=== PATIENT | male | born 1965 | race Caucasian/White ===

== ENCOUNTER 2019-09-15 01:46 | Day surgery (SDC) | payer OTHER, SELFPAY ==
[2019-09-02 15:01] VITALS: BMI 39.9
--- NOTE | 2019-09-15 10:55 | WPDANESEPPF ---
Anes - Initial Pre Proc Eval Procedure: Operation Date: 09/15/19 12:30 Proposed Procedures p Colonoscopy - Trevor Garcia DO Date/Time: 09/15/19 10:55 Surgeon: Trevor Garcia DO Pre Op Diagnosis: Other Fecal Abnormalities Patient Data Age: 54 Gender: M Height: 5 ft 11 in Weight: 130 kg Allergies Allergy/AdvReac Type Severity Reaction Status Date / Time No Known Allergies Allergy Verified 09/02/19 15:08 Home Medications Medication Instructions Recorded Confirmed Type insulin glargine [Basaglar KwikPen 100 unit SUBCUT BID 09/02/19 09/02/19 History U-100 Insulin] insulin lispro [Humalog KwikPen 80 unit SUBCUT TID 09/02/19 09/02/19 History Insulin] losartan 25 mg PO DAILY 09/02/19 09/02/19 History omeprazole 20 mg PO DAILY 09/02/19 09/02/19 History pravastatin 10 mg PO DAILY 09/02/19 09/02/19 History Patient hx anesthesia problems: none Family hx anesthesia problems: none [facility] Past Medical History Medical History Diabetes GERD (gastroesophageal reflux disease) Hyperlipidemia Hypertension Morbid obesity VALENTE (obstructive sleep apnea) Anes - Eval Final PreProcedure Day of Procedure 09/15/19 10:55 Patient weight: morbidly obese Heart: regular rate and rhythm Lungs: clear to auscultation Airway: Mallampati scale class II Neurological: alert and oriented Last oral intake: >/= 8 hours ASA classification: III Emergent: no Anesthetic plan: proceed Anesthesia type and monitoring: general GIVS and standard monitoring Informed Consent: The patient's anesthetic plan and its attendant risks and benefits were discussed with the patient/family/POA. Questions were solicited and answers provided to the satisfaction of the patient/family/POA.
[2019-09-15 10:59] LABS: Glucose Point of Care 213 (65-105)
[2019-09-15] MEDS: LACTATED RINGERS 1,000 ML 150 ML IV CONT (11:02)
[2019-09-15 11:06] VITALS: BP 152/87; PULSE 100; RESP 16; TEMP 36.5; O2SAT 98; BMI 39.0
--- NOTE | 2019-09-15 11:17 | PM.IMHP ---
H&P: HPI History of Present Illness Chief complaint: Other Fecal Abnormalities Narrative: Reason for visit colonoscopy. This very pleasant gentleman seen in consultation requested . Impression: Screening colonoscopy. The patient has a family history colorectal cancer. GERD well controlled on medication. Hyperlipidemia. Hypertension. Obstructive sleep apnea. Obesity. Diabetes mellitus. Recommendation: Colonoscopy. History: This very pleasant gentleman is negative GI review systems. He is here for screening colonoscopy. The patient has a family history colorectal cancer. The patient's mother had colorectal cancer. He has a history of reflux disease well controlled on medication. Heart rate rhythm regular. Lungs CTA. Abdomen is soft. Neuro nonfocal. HEENT is unremarkable. Musculature system was unremarkable. [facility] Past Medical History Medical History Diabetes GERD (gastroesophageal reflux disease) Hyperlipidemia Hypertension Morbid obesity VALENTE (obstructive sleep apnea) Meds Home Medications and Allergies Home Medications Medication Instructions Recorded Confirmed Type insulin glargine [Basaglar KwikPen 100 unit SUBCUT BID 09/02/19 09/15/19 History U-100 Insulin] insulin lispro [Humalog KwikPen 80 unit SUBCUT TID 09/02/19 09/15/19 History Insulin] losartan 25 mg PO DAILY 09/02/19 09/15/19 History omeprazole 20 mg PO DAILY 09/02/19 09/02/19 History pravastatin 10 mg PO DAILY 09/02/19 09/15/19 History Allergies Allergy/AdvReac Type Severity Reaction Status Date / Time No Known Allergies Allergy Verified 09/15/19 11:00 Vital Signs Vital Signs - 24 hr 09/15/19 11:06 Temperature 36.5 C Pulse Rate 100 Respiratory Rate 16 Blood Pressure 152/87 H Pulse Oximetry 98
[2019-09-15 12:01] VITALS: BP 140/89; PULSE 98; RESP 20; O2SAT 96
[2019-09-15 12:11] VITALS: BP 140/93; PULSE 94; RESP 20; O2SAT 96
[2019-09-15 12:21] VITALS: BP 147/93; PULSE 88; RESP 20; O2SAT 96
== END 2019-09-15 12:32 | disposition home or self-care (01) ==
PROVIDERS: Visit Provider Internal Medicine Gastroenterology
PROC: 0DJD8ZZ Inspection of Lower Intestinal Tract, Via Natural or Artificial Opening Endoscopic (ICD-10-PCS; CPT 45378; principal; 2019-09-15 12:30)
DX: Z12.11 Encounter for screening for malignant neoplasm of colon (principal); D12.0 Benign neoplasm of cecum; D12.4 Benign neoplasm of descending colon; K63.5 Polyp of colon; K62.1 Rectal polyp; K64.8 Other hemorrhoids; I10 Essential (primary) hypertension; E78.5 Hyperlipidemia, unspecified; E11.9 Type 2 diabetes mellitus without complications; K21.9 Gastro-esophageal reflux disease without esophagitis; G47.33 Obstructive sleep apnea (adult) (pediatric); E66.01 Morbid (severe) obesity due to excess calories; Z68.39 Body mass index [BMI] 39.0-39.9, adult; Z79.4 Long term (current) use of insulin
CPT/HCPCS: 45385; 45380; 88305; J2704; J7120

== ENCOUNTER 2019-12-22 17:19 | Outpatient (CLI) | payer OTHER, SELFPAY ==
--- NOTE | ~2019-12-22 | XR_ITS ---
EXAMINATION: XR chest 2V EXAM DATE: 12/22/2019 17:41 INDICATION: Chronic cough. Hypertension. TECHNIQUE: Frontal and lateral projections of the chest obtained and reviewed. Comparison is made to prior examination from 09/27/2011. FINDINGS: The lungs are clear. There are no pleural effusions. The cardiomediastinal silhouette is within normal limits. There is no pneumothorax suspected. Patient has diffuse idiopathic skeletal h yperostosis (DISH). IMPRESSION: Unremarkable chest x-ray exam. Reviewed, dictated and finalized at location A.
== END 2019-12-22 17:20 | disposition home or self-care (01) ==
LOC: ANHIMG 17:24
PROVIDERS: Visit Provider Internal Medicine
DX: R05 Cough (principal)
CPT/HCPCS: 71046

== ENCOUNTER 2020-01-14 12:34 | Outpatient (CLI) | payer OTHER, SELFPAY ==
--- NOTE | 2020-01-17 12:39 | P.PCNPFT_ITS ---
PFT Interpretation PFT Interpretation: DOS: 01/14/2020 REQUESTING: Dr. Chapin REASON FOR TESTING: cough PULMONARY FUNCTION TESTS Results are not reproducible. All tests were performed to the best of the patient's ability with significant coaching. He was not able to exhale 3 times for 6 seconds. Spirometry: FEV1 80% normal. FVC 70% mildly decreased. FEV 1% is normal. No bronchodilator was given. Lung volumes: TLC 86% normal. Slow vital capacity is 70% consistent with FVC. RV is 110%, normal. RV/TLC is increased 42% consistent with mild air trapping. Airway resistance mildly increased 145%. Diffusion: DLCO mildly decreased 67%. Flow volume loop: This was not reliably reproducible. Expiratory and i nspiratory limbs are both irregular however only 2 loops were obtained. IMPRESSION: Non-reproducible results showing mild ventilatory impairment, mild air trapping, and mild diffusion impairment. Abnormal flow volume loop may or may not have clinical significance. Interpretation is limited by inability to obtain 3 acceptable efforts. Mady Cunha MD
--- NOTE | 2020-06-12 12:02 | WPDSIXMINUTE ---
Six Minute Walk Six Minute Walk: The patients O2 sats started at 93% and dropped as low as 91% Total walk distance 457.20 meters conclusion: This patient does qualify for home oxygen therapy.
== END 2020-01-14 12:35 | disposition home or self-care (01) ==
PROVIDERS: Visit Provider Internal Medicine
DX: R05 Cough (principal); R94.2 Abnormal results of pulmonary function studies
CPT/HCPCS: 94375; 94726; 94729

== ENCOUNTER 2020-05-23 14:44 | Outpatient (CLI) | payer OTHER, SELFPAY ==
--- NOTE | ~2020-05-23 | XR_ITS ---
MODIFIED ESOPHAGRAM HISTORY: Dysphagia. TECHNIQUE: Modified barium esophagram was performed on 05/23/2020. I administered fluoroscopy and perf ormed the exam with speech pathologist. Patient was seated for lateral fluoroscopic imaging for tiesha stion of thin liquids, pudding, solids and quantified amounts, followed by thin liquids in uncontroll ed amounts. This was recorded on tape. A single fluoroscopic spot image was also recorded. The DAP fo r this procedure was 2.909 Gycm2. The amount of fluoroscopy time used during this procedure was 1.3 m inutes. FINDINGS: Oral stage: Adequate function. Pharyngeal stage: Adequate function. Cervical/esophageal stage: Adequate function. IMPRESSION: Patient tolerated regular consistency oral feedings in the upright position. Please kymberly elate with speech pathologist findings and specific feeding recommendations. Reviewed, dictated and finalized at location A. IMPRESSION: Patient tolerated regular consistency oral feedings in the upright position. Please correlate with speech pathologist findings and specific feedi ng recommendations.
--- NOTE | 2020-05-23 15:57 | STOPEVAL ---
MODIFIED BARIUM SWALLOW: Thank you for referring Feliz Perera to [facility].? Attending Provider: Mady Cunha MD FAX: [phone] *ST Outpatient Evaluation (mbs) Start: 05/23/20 15:47 Freq: Status: Active Protocol: Document 05/23/20 15:15 BECHERERT (Rec: 05/23/20 15:57 BECHERERT [email or web address]) Therapy Assessment Status Assessment Status Assessment Status Evaluation Outpatient Past Medical History Past Medical History Source of Past Medical History Patient Neurological History Hx Neurological Disorders No Significant History Respiratory History Hx Sleep Apnea Yes: no CPAP Gastrointestinal History Hx Gastroesophageal Reflux Disease Yes Genitourinary History Hx Genitourinary Disorders No Significant History Musculoskeletal History Hx Musculoskeletal Disorders No Significant History Hematological History Hx Hematological Disorders No Significant History Endocrine History Hx Diabetes Yes HEENT History Hx HEENT Disorders No Significant History Integumentary History Hx Skin Disorders No Significant History Reproductive History Hx Reproductive Disorders No Significant History Psychosocial History Hx Psychiatric Disorders No Significant History Pain History History of Any Previous or Ongoing No Significant History Instance of Pain Anesthesia History Hx Anesthesia Reactions No Significant History Evaluation Information Problem Diagnosis DYSPHAGIA Prior Level of Function Prior Swallow Level Prior Intake Method Oral Prior Diet Regular (Level 7 Diet) Prior Liquid Consistency Thin (Level 0 Diet) Pain Assessment Timing of Pain Assessment Timing of Pain Assessment Assessment Self Report Self Report Pain Level 0 Pain Score Pain Score 0: Self Report Modified Barium Swallow Evaluation Recent Swallowing History Reports Dysphagia reports coughing Onset of Dysphagia coughing starting a couple years ago History of Dysphagia No Other Factors Impacting Dysphagia None History of Pneumonia No Reported Difficult Consistencies Unable to Identify Intake Method Prior to Swallow Oral Evaluation Diet Prior to Swallow Evaluation Regular, Level 7 Liquid Consistency Prior to Swallow Thin (0) Evaluation Consistency Solid Consistency Method of Presentation Spoon Oral Preparatory Symptoms None Oral Phase Symptoms None Pharyngeal Phase Symptoms None Severity of Vallecular Residue None - 0% No Residue Severity of Pyriform Sinus Residue None - 0% No Residue 8 Point Laryngeal Penetration-Aspiration Material Does Not Enter Airway Scale Cervical/Esophageal Symptoms
== END 2020-05-23 14:45 | disposition home or self-care (01) ==
PROVIDERS: Visit Provider Internal Medicine Critical Care Medicine
DX: R05 Cough (principal)
CPT/HCPCS: 92611

== ENCOUNTER 2020-06-08 12:36 | Outpatient (CLI) | payer OTHER, SELFPAY ==
--- NOTE | 2020-06-08 13:02 | ECHO_ITS ---
Patient Info Name: Feliz Perera Age: 54 years : 1965 Gender: Male Ht: 71 in Wt: 280 lbs BSA: 2.57 m2 HR: 94 bpm BP: 158 / 96 mmHg Technical Quality: Fair Exam Date: 06/08/2020 1:44 PM Exam Location: [facility] Patient Status: Outpatient Admit Date: 06/08/2020 Staff Ordering Physician: Mady Cunha MD Traffic Operations Manager: Val Meyer RDCS Attending Provider: Mady Cunha MD Referring Physician: Guerline MARTINEZ; Exam Type: CA echo dop color flow w con Study Info Indications R06.02 - Shortness of breath Complete two-dimensional, color flow and Doppler transthoracic echocardiogram is performed with contrast to opacify the left ventricle and to improve the deliniation of the left ventricle endocardial borders. Contrast/Agitated Saline Contrast/Ag. Saline: Definity Amount: 1.00 ml Administered By: Samara Ching RN New IV Access: Dorsum of Hand and Left Site Condition: IV removed Summary 1. Left ventricular chamber dimension is normal. 2. Definity contrast administered improved wall motion interpretation. 3. Left ventricular systolic function is normal, estimated at 55-60%. 4. The left ventricular diastolic function is grade II diastolic dysfunction. 5. E/e' 12 is mildly elevated. 6. No pulmonary hypertension, estimated pulmonary arterial systolic pressure is 20 mmHg. Left Ventricle Definity contrast administered improved wall motion interpretation. E/e' 12 is mildly elevated. Left ventricular chamber dimension is normal. Left ventricular systolic function is normal, estimated at 55-60%. The left ventricular diastolic function is grade II diastolic dysfunction. Right Ventricle Right ventricular chamber dimension is normal. Right ventricular systolic function is normal. Left Atria Left atrial chamber dimension is normal. Right Atria Right atrial chamber dimension is normal. Aortic Valve The aortic valve is trileaflet. There is no aortic valve stenosis. There is no aortic valve regurgitation. Pulmonic Valve There is no pulmonic regurgitation. Mitral Valve There is no mitral valve stenosis. There is no mitral valve regurgitation. Tricuspid Valve There is no tricuspid valve regurgitation. No pulmonary hypertension, estimated pulmonary arterial systolic pressure is 20 mmHg. Pericardium/Pleural There is no pericardial effusion. Aorta The aortic root size at the sinus of Valsalva is normal. Left Ventricular Outflow Tract Name Value Normal LVOT 2D LVOT Diameter 2.03 cm LVOT Doppler LVOT Peak Gradient 8 mmHg LVOT Mean Gradient 4 mmHg LVOT VTI 23.00 cm LVOT VTI/AV VTI Ratio 0.98 LVOT Stroke Volume 74.59 ml LVOT CO 6.94 l/min LVOT CI 2.69 L/min/m2 Pulmonic Valve Name Value Normal ------
--- NOTE | 2020-06-12 12:04 | SIXMIN_ITS ---
This report was moved to the correct visit, [id number], on June 15, 2020. Original report was signed by Dr. Zazueta on June 12, 2020 at 1204. Six Minute Walk Six Minute Walk: The patients O2 sats started at 93% and dropped as low as 91% Total walk distance 457.20 meters conclusion: This patient does qualify for home oxygen therapy. Report Initialized date/time: Rogelio Zazueta MD 06/12/20 / 1204 Electronically signed by: Rogelio Zazueta MD 06/12/20 1209 [facility]
== END 2020-06-08 12:37 | disposition home or self-care (01) ==
LOC: ANHCARD 12:39
PROVIDERS: Visit Provider Internal Medicine Critical Care Medicine
DX: R06.02 Shortness of breath (principal)
CPT/HCPCS: 94618; C8929; Q9957

== ENCOUNTER → 2020-08-07 12:27 | Outpatient (CLI) | payer OTHER, SELFPAY ==
--- NOTE | ~2020-08-07 | XR_ITS ---
EXAMINATION: XR chest 2V EXAM DATE: 08/07/2020 13:23 INDICATION: Cough. TECHNIQUE: Frontal and lateral projections of the chest obtained and reviewed. Comparison is made to prior examination from 12/22/2019, 09/27/2011. FINDINGS: The lungs are clear. There are no pleural effusions. The cardiomediastinal silhouette is within normal limits. There is no pneumothorax suspected. The bones and soft tissues are unremarkab le. IMPRESSION: No acute cardiopulmonary findings. Reviewed, dictated and finalized at location B. 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
== END ==
PROVIDERS: PCP Internal Medicine; Visit Provider Internal Medicine
DX: R05 Cough (principal)
CPT/HCPCS: 71046

== ENCOUNTER 2020-09-25 07:17 | Outpatient (CLI) | payer OTHER, SELFPAY ==
--- NOTE | 2020-10-16 21:19 | WPDHOMESLEEP ---
Sleep Study - Home Unattended Date of Study: 09/25/20 Ordering Provider: Mady Cunha MD Interpreting Provider: Mady Cunha MD Home Sleep Study Type: Watch PAT Height: 1.8 m Weight: 133.81 kg Body Mass Index: 41.1 Neck Circumference (inches): 22 [place]: 4 Reason for Sleep Study VALENTE on CPAP Sleep History Feliz Perera is a 55 year old man has a history of sleep apnea using CPAP. He has difficulty waking up throughout and has daytime sleepiness. HE always snores, and it is constantly loud enough that others complain about it. He does not awaken at night with heartburn, belching or coughing. He does not awaken from sleep feeling short of breath. He rarely has trouble sleep with a cold. He does not wake up gasping for breath at night. He does not have breathing problems at night observed by others. He does not sweat excessively at night. He does not notice his heart pounding at night. He frequently falls asleep during the day, and this constantly is involuntarily, occasionally even while driving. He does not fall asleep during physical effort. He does not have loss of muscle tone with strong emotion. He does not have daytime difficulties due to excessive sleepiness. 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 Does not feel paralyzed on waking or falling asleep. He does not have vivid dreamlike scenes upon awakening or falling asleep. He does not feel afraid to go to sleep. He does not have nightmares. He occasionally remembers his dreams. He does not have racing thoughts, does not have feelings of sadness depression or anxiety. He does not have muscular tension, does not notice parts of his body jerking, does not kick at night, and does not have crawling or aching feelings in his legs. He denies any leg pain at night. He does not have morning jaw pain, does not grind his teeth at night, does not have pain during the day and is not awakened by pain at night. He does not wake up feeling stiff in the morning with sore achy muscles or pain in his neck and spine. He takes antacids regularly. Normal bedtime is 1:00 a.m. falling asleep within 1/2 hour, typically waking 4-5 times at night to turn over and reposition himself. It takes 10 minutes to get back to sleep. He wakes in the morning at 9:00 a.m. His weekend schedule is the same. He takes naps in the afternoon. A short nap may be refreshing. He is drowsy for an hour after waking. Habits: Never smoked tobacco. Caffeine 3 servings daily. No alcohol or recreational drugs. 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ry Insulin] losartan 25 mg PO DAILY 09/02/19 09/15/19 History omeprazole 20 mg PO DAILY 09/02/19 09/02/19 History pravastatin 10 mg PO DAILY 09/02/19 09/15/19 History albuterol sulfate 90 mcg/actuation 1 puff INHALATION Q4H PRN 08/22/20 History aerosol inhaler fluticasone propi
[2020-10-16 21:38] VITALS: BMI 41.1
== END 2020-09-25 07:18 | disposition home or self-care (01) ==
LOC: ANHCSM 07:18
PROVIDERS: PCP Internal Medicine; Visit Provider Internal Medicine Critical Care Medicine
DX: G47.33 Obstructive sleep apnea (adult) (pediatric) (principal); Z79.4 Long term (current) use of insulin; Z79.899 Other long term (current) drug therapy
CPT/HCPCS: 95800

== ENCOUNTER → 2020-11-21 15:12 | Outpatient (CLI) | payer OTHER, SELFPAY ==
--- NOTE | ~2020-11-21 | XR_ITS ---
EXAMINATION: XR knee RT min 4V DATE: 11/21/2020 15:43 INDICATION: Right knee pain TECHNIQUE: Four views of the right knee were obtained. COMPARISON: None. FINDINGS: Alignment is normal. No fracture or osteochondral lesion. There is mild tricompartment oste oarthritis. No joint effusion/synovitis. Soft tissues are unremarkable. IMPRESSION: 1. Osteoarthritis. Reviewed, dictated and finalized at location A. IMPRESSION: 1. Osteoarthritis.
== END ==
PROVIDERS: PCP Internal Medicine; Visit Provider Internal Medicine
DX: M17.11 Unilateral primary osteoarthritis, right knee (principal)
CPT/HCPCS: 73564

== ENCOUNTER → 2020-12-23 02:01 | Outpatient (CLI) | payer OTHER, SELFPAY ==
[2020-12-24 14:53] LABS: SARS-CoV-2 RNA PCR Negative
== END ==
PROVIDERS: PCP Internal Medicine; Visit Provider Internal Medicine Critical Care Medicine
DX: Z01.812 Encounter for preprocedural laboratory examination (principal); Z20.822 Contact with and (suspected) exposure to COVID-19
CPT/HCPCS: C9803; U0003; U0005

== ENCOUNTER 2020-12-26 08:16 | Outpatient (CLI) | payer OTHER, SELFPAY ==
--- NOTE | 2021-01-08 14:30 | WPDSLEEPSTUD ---
Sleep Study Ordering Provider: Mady Cunha MD Interpreting Physician: Mady Cunha MD Sleep Study Type: CPAP Titration Height: 1.8 m Weight: 131.542 kg Body Mass Index: 40.4 Neck Circumference (inches): 22 [place]: 9 Reason for Sleep Study 09/25/2020 Home sleep test using WatchPat; BMI 40.4; severe VALENTE,AHI 70, central AHI 8, samira 51%, loud persistent snoring, and tachycardia to 120. He has been on CPAP in the past. He presents for a titration. 06/06/2010: CPAP; optimal pressure 9 cm 07/23/2009: Basic sleep study; BMI 38.3; moderate VALENTE, AHI 23.6, samira 82%, moderate myoclonus Sleep History Feliz Perera is a 55 year old man has a history of sleep apnea using CPAP. He has difficulty waking up throughout and has daytime sleepiness. He always snores, and it is constantly loud enough that others complain about it. He does not awaken at night with heartburn, belching or coughing. He does not awaken from sleep feeling short of breath. He rarely has trouble sleep with a cold. He does not wake up gasping for breath at night. He does not have breathing problems at night observed by others. He does not sweat excessively at night. He does not notice his heart pounding at night. He frequently falls asleep during the day, frequently involuntarily, and occasionally even while driving. He does not fall asleep during physical effort. He does not have loss of muscle tone with strong emotion. He does not have daytime difficulties due to excessive sleepiness. 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 He does not feel paralyzed on waking or falling asleep. He does not have vivid dreamlike scenes upon awakening or falling asleep. He does not feel afraid to go to sleep. He does not have nightmares. He occasionally remembers his dreams. He does not have racing thoughts, does not have feelings of sadness, depression, or anxiety. He does not have muscular tension, does not notice parts of his body jerking, does not kick at night, and does not have crawling or aching feelings in his legs. He denies any leg pain at night. He does not have morning jaw pain, does not grind his teeth at night, does not have pain during the day and is not awakened by pain at night. He does not wake up feeling stiff in the morning with sore achy muscles or pain in his neck and spine. He takes antacids regularly. Normal bedtime is 1:00 a.m. falling asleep within 1/2 hour, typically waking 4-5 times at night to turn over and reposition himself. It takes 10 minutes to get back to sleep. He wakes in the morning at 9:00 a.m. His weekend schedule is the same. He takes naps in the afternoon. A short nap may be refreshing. He is drowsy for an hour after waking. Habits: Never smoked tobacco. Caffeine 3 servings daily. No alcohol or recreational drugs. 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
[2021-01-08 14:41] VITALS: BMI 40.4
== END 2020-12-26 08:17 | disposition home or self-care (01) ==
LOC: ANHCSM 08:16
PROVIDERS: PCP Internal Medicine; Visit Provider Internal Medicine Critical Care Medicine
DX: G47.33 Obstructive sleep apnea (adult) (pediatric) (principal)
CPT/HCPCS: 95811

== ENCOUNTER 2021-01-02 13:06 | Outpatient (CLI) | payer OTHER, SELFPAY ==
--- NOTE | ~2021-01-02 | MR_ITS ---
EXAMINATION: MR knee RT wo con DATE: 01/02/2021 13:49 INDICATION: Right knee pain. TECHNIQUE: Magnetic resonance imaging (MRI) of the right knee was performed without intravenous contr ast. Sequences included axial PD-weighted FS FSE, coronal PD-weighted FSE and PD-weighted FS FSE, sag ittal PD-weighted FSE, and sagittal T2-weighted FS FSE. COMPARISON: Right knee radiographs 11/21/2020 FINDINGS: Medial compartment: There is a radial tear of posterior horn of medial meniscus. There is a subchondral insufficiency fra cture of medial femoral condyle with low signal fracture line and extensive bone marrow edema. There is a subchondral insufficiency fracture of tibial condyle with low signal fracture line and extensive bone marrow edema. There is cartilage surface irregularity of tibial condyle and femoral condyle. Lateral compartment: Lateral meniscus is normal. There is deep cartilage fissuring of femoral condyle involving the mount loader ior articular surface with 4 mm cartilage flap. There is cartilage surface irregularity of tibial con dyle. Patellofemoral compartment: There is deep partial thickness cartilage loss of patellar lateral facet. Trochlear cartilage is norm al. Ligaments and tendons: The anterior and posterior cruciate ligaments are normal. Medial collateral ligament and lateral tanya ateral ligament complex are intact. There is moderate distal patellar tendinopathy. Fluid: There is a small knee joint effusion. IMPRESSION: 1. Subchondral insufficiency fractures of medial femoral condyle and medial tibial condyle. 2. Moderate chondrosis of lateral and patellofemoral compartments and mild chondrosis of medial meche rtment. 3. Tear of medial meniscus. 4. Small knee joint effusion. Reviewed, dictated and finalized at location A. IMPRESSION: 1. Subchondral insufficiency fractures of medial femoral condyle and medial tib ial condyle. 2. Moderate chondrosis of lateral and patellofemoral compartments and mild cely drosis of medial compartment. 3. Tear of medial meniscus. 4. Small knee joint effusion.
== END 2021-01-02 13:07 ==
PROVIDERS: PCP Internal Medicine; Visit Provider Internal Medicine
DX: M25.461 Effusion, right knee (principal); S83.241A Other tear of medial meniscus, current injury, right knee, initial encounter
CPT/HCPCS: 73721

== ENCOUNTER → 2023-08-06 12:34 | Outpatient (CLI) | payer BC, SELFPAY ==
--- NOTE | ~2023-08-06 | US_ITS ---
Abdominal Sonogram: Real-time sonographic imaging of the abdomen was performed. Clinical History: Pancytopenia Findings: The liver appears heterogeneous in echotexture, with no evidence of mass lesion or bile du ct dilatation. It measures 22 cm in length. Main portal vein demonstrates normal direction of flow. T he spleen is enlarged, measuring 23 cm in length. The gallbladder is well distended, and appears nor mal with no evidence of gallstone or wall thickening. The common bile duct measures 5 mm. The visual ized pancreas, aorta, and IVC are unremarkable. The right kidney measures 13.8 cm in length and the left kidney measures 12.4 cm. There is no hydronephrosis or renal calculus. Impression: Hepatosplenomegaly. Suspected underlying fatty infiltration or other chronic liver disease. Correlate clinically. Reviewed, dictated and finalized at [facility]. [facility] Impression: Hepatosplenomegaly. Suspected underlying fatty infiltration or other chronic li savannah disease. Correlate clinically.
== END ==
PROVIDERS: PCP Internal Medicine; Visit Provider Internal Medicine
DX: R16.2 Hepatomegaly with splenomegaly, not elsewhere classified (principal); D61.818 Other pancytopenia
CPT/HCPCS: 76700

== ENCOUNTER 2023-09-24 14:34 | Outpatient (CLI) | payer BC, SELFPAY ==
[2023-09-24 15:08] LABS: Basophils Percent Auto 0.4 % (0.2-1.2); Eosinophils Absolute Auto 0.1 K/mm3 (0-0.3); Eosinophils Percent Auto 2.2 % (0-4.4); Hematocrit 36.8 % (42.0-52.0); Hemoglobin 12.3 g/dL (14.0-18.0); Immature Granulocyte Absolute 0.01 K/mm3 (0.00-0.031); Immature Granulocyte Percent A 0.4 % (0-0.5); Lymphocytes Absolute Auto 0.45 K/mm3 (0.9-3.2); Lymphocytes Percent Auto 19.6 % (18.3-44.2); Mean Corpuscular HGB Conc 33.4 g/dl (32-36); Mean Corpuscular Hemoglobin 28.9 pg (26-34); Mean Corpuscular Volume 86.4 fl (80-100); Monocytes Absolute Auto 0.3 K/mm3 (0.1-0.6); Monocytes Percent Auto 13.5 % (2.6-8.5); Neutrophils Absolute Auto 1.5 K/mm3 (1.3-6.7); Neutrophils Percent Auto 63.9 % (45.5-73.1); Platelet Count Result 44 k/mm3 (150-375); Red Blood Count 4.26 M/mm3 (4.6-6.20); Red Cell Distribution Width 14.4 % (11.5-14.5); White Blood Count 2.3 K/mm3 (4.5-10.0)
[2023-09-24 17:38] LABS: Iron 71 ug/dL (49-181)
[2023-09-24 17:44] LABS: Alanine Aminotransferase 43 U/L (6-50); Albumin Level 3.9 g/dL (3.5-5.1); Alkaline Phosphatase 84 U/L (38-126); Anion Gap 7 mmol/L (8-16); Aspartate Amino Transferase 51 U/L (17-59); Bilirubin,Total 0.9 mg/dL (0.2-1.3); Blood Urea Nitrogen 10 mg/dL (9-20); Calcium 8.9 mg/dL (8.4-10.2); Carbon Dioxide 22 mmol/L (22-30); Chloride 109 mmol/L (98-107); Estimated Glomerular Filt Rate > 60; Glucose 127 mg/dL (65-110); Potassium 4.2 mmol/L (3.4-5.0); Sodium 138 mmol/L (137-145)
[2023-09-24 17:50] LABS: Percent Iron Saturation 17 % (20-50)
[2023-09-24 18:51] LABS: Folic Acid 7.5 ng/mL (2.76->20)
[2023-09-27 15:17] LABS: Methylmalonic Acid 65 nmol/L (87-318)
[2023-09-28 13:06] LABS: BCR/abl Prior Result Not Given
[2023-09-28 13:51] LABS: BCR/abl P190 Not Detected; BCR/abl P190 Chg YES; BCR/abl P210 Not Detected; BCR/abl P210 Chg YES
[2023-09-29 17:17] LABS: Soluble Transferrin Receptor 1.36 mg/L (0.76-1.76)
== END 2023-09-24 14:35 | disposition home or self-care (01) ==
LOC: ANHLAB 14:36
PROVIDERS: PCP Internal Medicine; Visit Provider Internal Medicine Hematology & Oncology
DX: D61.818 Other pancytopenia (principal); D50.9 Iron deficiency anemia, unspecified
CPT/HCPCS: 36415; 80053; 81206; 81207; 82607; 82728; 82746; 83540; 83550; 83921; 84238; 85025; 85055

== ENCOUNTER 2023-10-08 00:39 | Day surgery (SDC) | payer BC, SELFPAY ==
[2023-10-07 13:25] VITALS: BMI 41.5
--- NOTE | ~2023-10-08 | BM_ITS ---
EXAMINATION: CCL bone marrow asp w bx diag ORDER COMPLETED DATE: 10/08/2023 10:03 INDICATION: Pancytopenia TECHNIQUE: A time-out was performed to verify the patient's name, date of , and procedure to b e performed. The procedure including the risks and benefits was discussed with the patient. Risks dis cussed included bleeding, infection, nerve injury and allergic reaction. The patient understood the r isks and agreed to proceed. The skin overlying the right posterior iliac spine was prepped and draped in usual sterile fashion. Anesthetic was administered with 1% lidocaine subcutaneously. Moderate co nscious sedation was achieved with 75 mcg fentanyl IV. An 11 gauge needle was inserted into the right ilium with fluoroscopic guidance. Bone marrow was aspirated. An 8 gauge needle was then inserted int o the right ilium with fluoroscopic guidance. A core bone marrow biopsy was obtained. The needle was removed and the entry site was cleaned and dressed. There were no immediate complications. A total o f 4 fluoroscopic images were recorded. Fluoroscopy exposure time was 0.1 minutes. Total DAP was 1786 mGycm^2 FINDINGS: Real-time fluoroscopy demonstrates the biopsy needle tip overlying the right posterior ian c spine. IMPRESSION: 1. Successful fluoroscopic guided bone marrow aspiration. 2. Successful fluoroscopic guided bone marrow biopsy. Reviewed, dictated and finalized at location A. 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
[2023-10-08 07:57] VITALS: BP 133/72; PULSE 91; RESP 16; TEMP 36.7; O2SAT 100; BMI 41.2
[2023-10-08 08:11] LABS: Basophils Percent Auto 0.6 % (0.2-1.2); Eosinophils Percent Auto 1.7 % (0-4.4); Hematocrit 37.3 % (42.0-52.0); Immature Granulocyte Absolute 0.01 K/mm3 (0.00-0.031); Immature Granulocyte Percent A 0.6 % (0-0.5); Immature Platelet Fraction Pct 8.4 % (0.9-11.2); Lymphocytes Absolute Auto 0.34 K/mm3 (0.9-3.2); Lymphocytes Percent Auto 18.9 % (18.3-44.2); Mean Corpuscular HGB Conc 32.2 g/dl (32-36); Mean Corpuscular Hemoglobin 28.7 pg (26-34); Mean Corpuscular Volume 89.2 fl (80-100); Monocytes Absolute Auto 0.2 K/mm3 (0.1-0.6); Monocytes Percent Auto 13.3 % (2.6-8.5); Neutrophils Absolute Auto 1.2 K/mm3 (1.3-6.7); Neutrophils Percent Auto 64.9 % (45.5-73.1); Platelet Count Result 37 k/mm3 (150-375); Red Blood Count 4.18 M/mm3 (4.6-6.20); Red Cell Distribution Width 14.6 % (11.5-14.5)
[2023-10-08 08:14] LABS: White Blood Count 1.8 K/mm3 (4.5-10.0)
[2023-10-08 08:23] LABS: INR 1.3; Prothrombin Time 16.7 Seconds (11.1-14.7)
[2023-10-08 08:39] LABS: Platelet Estimate Decreased (Adequate)
[2023-10-08 08:40] LABS: Hypochromasia 1+ (NORMAL); Schistocytes None Seen (NORMAL)
--- NOTE | 2023-10-08 09:14 | WPDMODSED ---
Moderate Sedation Note-Pt Data Patient Data Diagnosis: pancytopenia Present Complaint: pancytopenia Procedure to be performed/Plan: bone marrow biopsy Allergies Allergy/AdvReac Type Severity Reaction Status Date / Time No Known Allergies Allergy Verified 10/08/23 07:56 Home Medications Medication Instructions Recorded Confirmed Type insulin glargine 100 unit/mL (3 120 unit subcut BID 09/02/19 10/07/23 History mL) subcutaneous pen (Basaglar KwikPen U-100 Insulin) insulin lispro 100 unit/mL 100 unit subcut TID 09/02/19 10/07/23 History subcutaneous pen (Humalog KwikPen (U-100) Insulin) losartan 25 mg tablet 100 mg PO DAILY 09/02/19 10/07/23 History omeprazole 20 mg capsule,delayed 20 mg PO DAILY 09/02/19 10/07/23 History release pravastatin 10 mg tablet 10 mg PO DAILY 09/02/19 10/07/23 History dulaglutide 4.5 mg/0.5 mL 4.5 mg subcut WEEKLY 10/07/23 10/07/23 History subcutaneous pen injector (Trulicity) solifenacin 10 mg tablet 10 mg PO DAILY 10/07/23 10/07/23 History Sedation/Anesthesia: No previous sedation/anesthesia problems (including family history). 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, 17 years working in a [employer] with smoke exposure, lives alone, no kids, no pets Smoking status: Never smoker Second hand tobacco smoke exposure: No Alcohol intake: current Substance use: never Substance use type: does not use Living arrangements: with family Spiritual care concerns: No Mod Sed Physical Exam Physical Exam Pre Procedural Exam: Normal: Throat, Lungs, Heart Rate and Heart Rhythm and Variation: Appearance (obese) Hours since solid foods: 10 Hours since liquid intake: 10 Mallampati Classification: class 1 and class III Internal Medicine - PN: Obj Da Vital Signs Vital Signs: Vital Signs - 24 hr 10/08/23 07:57 Temperature 98.1 F Pulse Rate 91 Respiratory Rate 16 Blood Pressure 133/72 Pulse Oximetry 100 Oxygen Delivery Room Air Labs 10/08/23 08:01 Labs: Laboratory Results - last 24 hr 10/08/23 08:01 WBC 1.8 L* RBC 4.18 L Hgb 12.0 L Hct 37.3 L MCV 89.2 MCH 28.7 MCHC 32.2 RDW 14.6 H Plt Count 37 L MPV 11.0 H Immature Gran % (Auto) 0.6 H Neut % (Auto) 64.9 Lymph % (Auto) 18.9 [place] % (Auto) 13.3 H Eos % (Auto) 1.7 Baso % (Auto) 0.6 Lymph # (Auto) 0.34 L [place] # (Auto) 0.2 Eos # (Auto) 0.0 Baso # (Auto) 0.0 Abs Immat Gran (auto) 0.01 Absolute Neuts (auto) 1.2 L Absolute Nucleated RBC 0.0 Nucleated RBC % 0.0 Platelet Estimate Decreased % Immature Plt Fraction 8.4 Hypochromasia 1+ Schistocytes None seen PT 16.7 H INR 1.3 ASA Classification/Sedation ASA Classification/Sedation ASA Class: II Emergent: No Risks: Risks, benefits and alternatives explained and patient/family accepted plan for sedation. Patient re-evaluated immediately prior to sedation.
[2023-10-08 10:03] VITALS: BP 129/66; PULSE 83; RESP 18; O2SAT 97
[2023-10-08 10:15] VITALS: BP 129/70; PULSE 85; RESP 18; O2SAT 98
[2023-10-08 10:30] VITALS: BP 119/67; PULSE 85; RESP 18; O2SAT 98
[2023-10-08 10:45] VITALS: BP 121/71; PULSE 83; RESP 18; O2SAT 98
--- NOTE | 2023-10-08 11:05 | SUR.PHASEII ---
d/c in stable condition without c/o pain or distress. bone marrow biopsy site d/i with pressure piero
== END 2023-10-08 11:05 | disposition home or self-care (01) ==
PROVIDERS: PCP Internal Medicine; Referring Provider Internal Medicine Hematology & Oncology; Visit Provider Radiology Diagnostic Radiology
DX: D61.818 Other pancytopenia (principal); E11.9 Type 2 diabetes mellitus without complications; I10 Essential (primary) hypertension; E78.5 Hyperlipidemia, unspecified; G47.33 Obstructive sleep apnea (adult) (pediatric); K21.9 Gastro-esophageal reflux disease without esophagitis; E66.01 Morbid (severe) obesity due to excess calories; Z68.41 Body mass index [BMI] 40.0-44.9, adult; Z79.85 Long-term (current) use of injectable non-insulin antidiabetic drugs; Z79.84 Long term (current) use of oral hypoglycemic drugs
CPT/HCPCS: 36415; 38222; 85025; 85055; 85610; 88305; 88311; 88313; 88341; 88342; J1642; J3010; J7040

== ENCOUNTER 2023-10-30 13:18 | Outpatient (CLI) | payer BC, SELFPAY ==
[2023-10-30 16:48] LABS: Immunoglobulin A 255 mg/dL (70-400); Immunoglobulin G 1941 mg/dL (700-1600); Immunoglobulin M 139 mg/dL (40-230)
[2023-11-01 20:42] LABS: Kappa\\Lambda Light Chains 3.43 (0.26-1.65); Lambda Light Chain 21.3 mg/L (5.7-26.3)
[2023-11-03 10:40] LABS: Abnormal Protein Band 1 0.8 g/dL; Albumin 3.8 g/dL (3.8-4.8); Alpha 1 Globulin 0.3 g/dL (0.2-0.3); Alpha 2 Globulin 0.6 g/dL (0.5-0.9); Beta 1 Globulin 0.5 g/dL (0.4-0.6); Gamma Globulin 1.7 g/dL (0.8-1.7); Protein, Total 7.1 g/dL (6.1-8.1)
== END 2023-10-30 13:19 | disposition home or self-care (01) ==
LOC: ANHLAB 13:20
PROVIDERS: PCP Internal Medicine; Visit Provider Internal Medicine Hematology & Oncology
DX: D47.2 Monoclonal gammopathy (principal)
CPT/HCPCS: 36415; 82784; 83883; 84155; 84165

== ENCOUNTER 2025-05-05 14:30 | Outpatient (CLI) | payer BC, SELFPAY ==
--- NOTE | ~2025-05-05 | XR_ITS ---
EXAMINATION: XR hip BI 2V w AP pelvis, 05/05/2025 14:36 CDT HISTORY: Pain in left and right hip COMPARISON: No comparisons available. Findings: No acute fracture or malalignment. No significant degenerative changes. Soft tissues unremarkable. Impression: No acute fracture or malalignment. Reviewed, dictated and finalized at location A. Impression: No acute fracture or malalignment.
== END 2025-05-05 14:31 | disposition home or self-care (01) ==
LOC: MICIMG 14:32
PROVIDERS: PCP Chiropractor Rehabilitation; Visit Provider Chiropractor Rehabilitation
DX: M25.551 Pain in right hip (principal); M25.552 Pain in left hip
CPT/HCPCS: 73521

== ENCOUNTER 2025-07-22 07:27 | Outpatient (CLI) | payer BC, SELFPAY ==
--- NOTE | 2025-07-22 | EST_ITS ---
Patient Info Name: Feliz Perera Age: 60 years : 1965 Gender: Male Ht: 71 in Wt: 290 lbs BSA: 2.62 m2 HR: 81 bpm BP: 119 / 53 mmHg Exam Date: 07/22/2025 8:06 AM Patient Status: O Admit Date: 07/22/2025 Exam Type: CA stress ainl w NM A regadenoson stress test was performed. Staff Referring Physician: Sp Ann MD Attending Provider: Sp Ann MD Exercise Technologist: Juana Davis Exercise Physician: Marco Cheng DO Summary 1. 1. Negative lexiscan stress test for ischemic ST changes by ECG criteria. 2. 2. Stable hemodynamics throughout the test. 3. 3. Nuclear scan to follow and will be reported separately. Please correlate with it. 4. 4. Patient informed of the above results. Protocol: Lexiscan Stress ECG Details Stage: REST Duration (min): 2 min : 0 sec HR (bpm): 81 SBP (mmHg): 119 DBP (mmHg): 53 Stage: REST Duration (min): 4 min : 7 sec HR (bpm): 81 SBP (mmHg): 119 DBP (mmHg): 53 Stage: STAGE 1 Duration (min): 0 min : 59 sec HR (bpm): 92 SBP (mmHg): 119 DBP (mmHg): 53 Stage: RECOVERY Duration (min): 1 min : 0 sec HR (bpm): 94 SBP (mmHg): 119 DBP (mmHg): 53 Stage: RECOVERY Duration (min): 2 min : 0 sec HR (bpm): 88 SBP (mmHg): 180 DBP (mmHg): 54 Stage: RECOVERY Duration (min): 3 min : 0 sec HR (bpm): 90 SBP (mmHg): 169 DBP (mmHg): 55 Stage: RECOVERY Duration (min): 3 min : 32 sec HR (bpm): 89 SBP (mmHg): 169 DBP (mmHg): 55 Rest HR: 81 bpm Peak HR: 94 bpm Rest Sys BP: 119 mmHg Peak Sys BP: 180 mmHg Max Pred HR: 161 bpm % Max Pred HR: 58 % Target HR: 137 bpm Max RPP: 16,920 bpm*mmHg Termination Reason: Completed protocol Cardiac Symptoms: None Total Time: 1 min : 0 sec Rest Chase BP: 53 mmHg Peak Chase BP: 54 mmHg Total Dose: 0.4 mg Resting ECG Sinus rhythm. Stress ECG No ST changes. Arrhythmias None. Report Signatures
--- NOTE | 2025-07-22 | ECHO_ITS ---
Patient Info Name: Feliz Perera Age: 60 years : 1965 Gender: Male Ht: 71 in Wt: 290 lbs BSA: 2.62 m2 HR: 86 bpm BP: 170 / 77 mmHg Heart Rhythm: Sinus Rhythm Technical Quality: Poor Exam Date: 07/22/2025 8:23 AM Patient Status: O Admit Date: 07/22/2025 Exam Type: CA echo dop color flow w con Complete two-dimensional, color flow and Doppler transthoracic echocardiogram is performed with contrast to opacify the left ventricle and to improve the deliniation of the left ventricle endocardial borders. Staff Referring Physician: Sp Ann MD Analysis Engineer: Koko Patel Attending Provider: Sp Ann MD Contrast/Agitated Saline Contrast/Ag. Saline: Definity Amount: 2.00 ml Administered By: Koko Patel Existing IV Access: No IV Access Condition: patent with no signs of infiltration New IV Access: Right Summary 1. Technically suboptimal study due to poor sonographic images. 2. Definity contrast administered improved wall motion interpretation. 3. Left ventricular chamber dimension is normal. 4. Left ventricular systolic function is normal, estimated at 55-60. 5. The left ventricular diastolic function is normal. 6. E/e' 8 is minimally elevated. 7. Left atrial chamber dimension is moderately enlarged. 8. The aortic valve is not well visualized. Cannot determine number of aortic valve leaflets. 9. The mitral valve has a moderately calcified annulus. 10. There is trace pulmonic regurgitation. Left Ventricle Definity contrast administered improved wall motion interpretation. Left ventricular chamber dimension is normal. Left ventricular systolic function is normal, estimated at 55-60. The left ventricular diastolic function is normal. E/e' 8 is minimally elevated. Technically suboptimal study due to poor sonographic images. Right Ventricle Right ventricular chamber dimension is normal. Right ventricular systolic function is normal and with normal TAPSE 2.6 cm. Left Atria Left atrial chamber dimension is moderately enlarged. Right Atria Right atrial chamber dimension is normal. Aortic Valve The aortic valve is not well visualized. Cannot determine number of aortic valve leaflets. There is no aortic valve stenosis based on valve area and gradients. There is no aortic valve regurgitation. Pulmonic Valve There is trace pulmonic regurgitation. Mitral Valve The mitral valve has a moderately calcified annulus. There is no mitral valve stenosis. There is no mitral valve regurgitation. Tricuspid Valve There is no tricuspid valve regurgitation. Pericardium/Pleural There is no pericardial effusion. Inferior Vena Cava Inferior vena cava is not well visualized. Aorta The aortic root size at the sinus of Valsalva is normal. Left Ventricular Outflow Tract Name Value Normal LVOT 2D LVOT Diameter 2.1 cm LVOT Doppler LVOT Peak Velocity 77 cm/s LVOT Peak Gradient 2 mmHg LVOT Mean Gradient 0 mmHg LVOT VTI 4 cm LVOT Stroke Volume 13 ml LVOT CO 1.1 l/min LVOT CI 0.4 l/min/m2 Pulmonic Valve Name Value Normal PV 2D RVOT Diameter (2D) 3.8 cm 1.7-2.7 RVOT Doppler RVOT Peak Velocity 200 cm/s RVOT Peak Gradient 16 mmHg PV Doppler PV Peak Velocity 217 cm/s PV Peak Gradient 19 mmHg PV Area (Cont Eq Hai) 10.4 cm2 PV Area Index (Cont Eq Hai) 3.95 cm2/m2 PV Regurgitation Doppler NJ Peak End Diastolic Velocity 187 cm/s Mitral Valve Name Value Normal MV Diastolic Function MV E Peak Velocity 102 cm/s MV A Peak Velocity 92 cm/s MV E/A 1.1 MV Decel Time (PW) 215 ms MV Annular TDI MV E/e' (Septal) 7.4 MV E/e' (Lateral) 10.9 MV E/e' (Average) 9.2 Tricuspid Valve Name Value Normal TV Regurgitation Doppler TR Peak Velocity 83 cm/s TR Peak Gradient 3 mmHg Estimated PAP/RSVP RA Pressure 5 mmHg <=5 PA Systolic Pressure 8 mmHg <36 RV Systolic Pressure 8 mmHg <36 TV Annular TDI TV Lateral Ananya s' Velocity 11.0 cm/s >=9.5 Aorta Name Value Normal Ascending Aorta Ao Root Diameter (MM) 2.0 cm Ao Root Diam Index (MM) 0.7 cm/m2 Aortic Valve Name Value Normal AV Regurgitation 2D LVOT Area 3.6 cm2 Ventricles Name Value Normal LV Dimensions 2D/MM IVS Diastolic Thickness (2D) 0.8 cm 0.6-1.0 LVID Diastole (2D) 3.9 cm 4.2-5.8 LVIW Diastolic Thickness (2D) 1.1 cm 0.6-1.0 LVID Systole (2D) 2.4 cm 2.5-4.0 LVOT Diameter 2.1 cm LV Mass (2D Cubed) 113.63 g 88.00-224.00 LV Mass Index (2D Cubed) 43 g/m2 49-115 Relative Wall Thickness (2D) 0.55 <=0.42 LV Fractional Shortening/Ejection Fraction 2D/MM LV Fractional Shortening (2D) 39 % 25-43 LV EF (2D Teichholz) 70 % LV Diastolic Volume (4C MOD) 55 ml LV EF (4C MOD) 55 % LV Diastolic Volume (2C MOD) 55 ml LV EF (2C MOD) -5 % LV Diastolic Volume (BP MOD) 58 ml 62-150 LV Diastolic Volume Index (BP MOD) 22 ml/m2 34-74 LV Systolic Volume (BP MOD) 37 ml 21-61 LV Systolic Volume Index (BP MOD) 14 ml/m2 11-31 LV EF (BP MOD) 36 % 52-72 LV Diastolic Length (4C) 6.0 cm LV Systolic Length (4C) 4.8 cm LV Stroke Volume (4C MOD) 30 ml Atria Name Value Normal LA Dimensions LA Dimension (MM) 4.6 cm 3.0-4.0 LA Volume (4C A-L) 18 ml LA Volume (BP A-L) 53 ml Report Signatures
--- NOTE | ~2025-07-22 | NM_ITS ---
EXAMINATION: NM anil stress w perfusion DATE: 07/22/2025 13:29 INDICATION: Hypertension TECHNIQUE: Rest images were obtained following intravenous administration of 9 mCi Tc99m tetrofosmin (Myoview). The patient was infused intravenously with Lexiscan (Regadenoson). Then, 38.4 mCi Tc99m tetrofosmin (Myoview) was administered intravenously, and stress images were obtained. Data was reconst ructed into short axis and horizontal and vertical long axis SPECT images. Gated SPECT images were also obtained. COMPARISON: None. FINDINGS: There is no definite reversible or fixed perfusion abnormality to suggest ischemia or infarction. There is normal left ventricular chamber size, wall motion and ejection fraction. Left ventricular ejection fraction measures 59%. IMPRESSION: 1. Normal myocardial perfusion at rest and during stress. 2. Left ventricular ejection fraction measuring 59%. Reviewed, dictated and finalized at location A. 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
[2025-07-22] MEDS: PERFLUTREN LIPID MICROSPHERES 1.5 ML VIAL DILUTED TO 10 ML TOTAL VOLUME IV PUSH (11:21)
--- NOTE | 2025-07-22 11:23 | IVDEFINITY ---
Prior to administration of IV Definity the patient was educated on the risks and benefits of the imaging enhancing agent including potential adverse side effects. The patient verbalized understanding. Allergies were verified. No exclusion criteria were identified and at least one of the following inclusion criteria were met: 1) physician request, 2) patient technically difficult to image (per the [place] [employer] guidelines of two or more segments not discernable within the apical view), or 3) questionable left ventricular function. ?
== END 2025-07-22 07:28 | disposition home or self-care (01) ==
PROVIDERS: PCP Internal Medicine; Visit Provider Internal Medicine
DX: I38 Endocarditis, valve unspecified (principal); I10 Essential (primary) hypertension
CPT/HCPCS: 78452; 93017; A9502; C8929; J2785; Q9957